=== PATIENT | female | born 1955 | race Caucasian/White ===

== ENCOUNTER 2016-10-27 16:44 | Inpatient (IN) | payer MEDICARE, OTHER ==
--- NOTE | ~2016-10-27 | CN ---
Consultation Report [facility] [address] [place]. [address] NAME: BALDOMERO QUIJANO : 51 STATUS : ADM IN PAT#: [id number] AGE: 61 ADM/REG DATE : 10/27/16 MR#: [id number] REPORT SERV DATE: 11/01/16 DICTATED BY: NOLVIA HARDIN DATE: 11/01/16 REPORT STATUS : Draft TRANSCRIBED BY: TAMAR DATE: 11/01/16 INFECTIOUS DISEASE CONSULT DATE OF CONSULTATION: REFERRING PHYSICIAN: Fish Carrizales M.D. REASON FOR REFERRAL: Evaluation and treatment of fever, positive blood culture, and the patient needs a device implanted. HISTORY OF PRESENT ILLNESS: The patient is a 61-year-old female. She has history diabetes mellitus, obstructive sleep apnea, atrial fibrillation, and chronic renal insufficiency. She has been on Coumadin for some time. She interestingly also was diagnosed with coarctation of the aorta at age 6 and underwent an innovative procedure at [facility] for repair of that at age 6 including aortic outflow tract surgery and aortic valve replacement. She has had no further surgery or problems with that since then. She had been doing relatively well at home until about ten days ago when she began feeling weak, developed easy fatigability, became unsteady on her feet, that progressed until the day of admission, October 27 when she was found unresponsive by her daughter or by a grandson at home. She was brought in, initially looked somewhat cyanotic, but had begun to wake up and looked better by the time she arrived. She has been evaluated by Cardiology and ultimately EP and felt to have an arrhythmia that requires a pacemaker. At that time she came in, she was afebrile. White blood cell count was normal. She gave a history of a recent diagnosis of urinary tract infection two days before and two days of Cipro for that. She said she had some mild burning with urination, but no other symptoms. She was continued on antibiotics in the form of Rocephin at admission. Her admission temperature was normal, white blood cell count was normal, and urinalysis was normal. She, later in the day on the , had a temperature to 100.4 and in the edi architect hours, a temperature to 102. She said she felt feverish, had mild chills, but by the morning, that all resolved. Her all recorded temperatures since then for two and a half days have been normal. She had no new symptoms with that other than she says she has a mild upper respiratory infection symptoms with some sinus congestion, a dry cough, and her grandson had similar symptoms recently. She says she is feeling better and better each day. The Rocephin that had been started at admission had been discontinued on the and she has been on no antibiotics since then. Cultures taken at the time of the fever spike returned positive for gram-positive cocci one of two, initially, but that has been identified as Micrococcus and the other blood culture has been finalized as negative. She is generally feeling well now without any focal symptoms. No unusual environmental exposures recently. PAST MEDICAL HISTORY: Otherwise unremarkable. MEDICATIONS: As mentioned above. ALLERGIES: SHE HAS AN ALLERGY TO SULFA, WHICH CAUSES A RASH. SHE LIVES WITH HER DAUGHTER. Consultation Report [facility] [id number] [place]. [address] NAME: BALDOMERO QUIJANO : 51 STATUS : ADM IN [facility]#: [id number] AGE: 61 ADM/REG DATE : 10/27/16 MR#: [id number] REPORT SERV DATE: 11/01/16 DICTATED BY: NOLVIA HARDIN DATE: 11/01/16 REPORT STATUS : Draft TRANSCRIBED BY: TAMAR DATE: 11/01/16 SHE IS , IS A NONSMOKER, [place], HAS NO HISTORY OF ALCOHOL OR SUBSTANCE ABUSE. FAMILY HISTORY: Noncontributory. PHYSICAL EXAMINATION: GENERAL: Nontoxic adult female, in no acute distress. She is alert and oriented x3. VITAL SIGNS: Her temperature is 98.1, pulse 48, respirations 18, blood pressure 154/67. Her weight is 99 kg. HEENT: Her sclerae are clear. No oral or pharyngeal lesions. NECK: Supple without meningeal signs or lymphadenopathy. LUNGS: Clear. HEART: Irregular. ABDOMEN: Soft, nontender. Positive bowel sounds. EXTREMITIES: Without clubbing, cyanosis, or edema. No evidence of peripheral emboli. No rashes or sores. She has missing toes on her right foot from diabetic foot infection in the past that was years ago with nothing that looks infected now. LABORATORY DATA: White count at admission was 7.6, went up to 9.9, was down to 4.1 on the , 2.9 yesterday, 2.8 today with hematocrit of 36.3, and platelets 186, 36 segs, 1 band on today's differential. Her BUN and creatinine 22 and 0.94. Creatinine was 1.38 when she came in. IMPRESSION: I do not feel that she has an active bacterial infection now. There is no evidence of urinary tract infection at admission. No symptoms of that now. The blood culture, I feel is just a contaminant. There is no reason to suspect Micrococcus to be a pathogen in her and finally, she has had no fever despite being off all antibiotics for two and a half days. RECOMMENDATIONS: 1. No antibiotics recommended. 2. I feel okay to proceed with a pacemaker tomorrow unless she has more fever. Tonight, we will write to re-culture if she does. We will also check a CBC and procalcitonin tomorrow morning. Finally, I will follow the patient with you. I appreciate very much your consulting on this patient. KIRSTY/TAMAR Nolvia Hardin M.D. / [id number] Consultation Report [address] [place]. [address] NAME: BALDOMERO QUIJANO : 51 STATUS : ADM IN [facility]#: [id number] AGE: 61 ADM/REG DATE : 10/27/16 MR#: [id number] REPORT SERV DATE: 11/01/16 DICTATED BY: NOLVIA HARDIN DATE: 11/01/16 REPORT STATUS : Draft TRANSCRIBED BY: TAMAR DATE: 11/01/16 CC: Glenroy Marcos MD [facility] Sadie Carrizales M.D.
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
--- NOTE | ~2016-10-27 | CN ---
Consultation Report [facility] [address] [place]. [address] NAME: BALDOMERO QUIJANO : 51 STATUS : ADM IN PAT#: [id number] AGE: 61 ADM/REG DATE : 10/27/16 MR#: [id number] REPORT SERV DATE: 10/30/16 DICTATED BY: PATRICK ABBOTT DATE: 10/30/16 REPORT STATUS : Draft TRANSCRIBED BY: MODL DATE: 10/30/16 CARDIOLOGY CONSULTATION DATE OF CONSULTATION: 10/30/2016 REASON FOR CONSULTATION: Atrial fibrillation. HISTORY OF PRESENT ILLNESS: Ms Quijano is a very pleasant 61-year-old female, whom we have been asked to see by the Hospitalist Service for evaluation and management of atrial fibrillation. Her cardiac history is notable for congenital aortic stenosis that was operated on as a child at [facility] with repair and aortic valve replacement. This was performed at [place]. The patient states this is one of the first surgeries of its kind. She is unaware of the specifics of her valve, but denies having a metallic valve and denies any subsequent repeat operation on her heart other than ablation for atrial fibrillation. She does have long-standing atrial fibrillation that appears paroxysmal. She was treated with ablation in the past by Dr. Golden and more recently was cardioverted at this hospital in 07/2016. She was scheduled to follow up with my partner, Dr. Fish Carrizales, but was unable to keep the appointment and has not been seen by our group as an outpatient despite multiple hospital admissions. She does take chronic anticoagulation with warfarin, but per her medical record, has not been able to tolerate long-term use of beta blockers due to resting bradycardia. She has not been on an antiarrhythmic as far as I can tell and thus far she is aware. She is admitted to the hospital after having an episode of nonresponsiveness. She was at home with her 5-year-old grandson who apparently called 911 when he noticed she was not responding to questions. The patient was minimally responsive and apparently with cyanotic lips when the EMS arrived, but her level of consciousness gradually improved en route to the hospital. She apparently has had five days of increased lethargy with some description of involuntary movements of her upper extremities and unsteadiness on her feet. Her mental status has largely resolved and her workup has been unrevealing of the clear etiology. Her EKG upon arrival on 10/27/2016 was notable for sinus rhythm. She subsequently reverted to atrial fibrillation with tachycardic response and was started on AV tyrone blocking agents including diltiazem and now Coreg. She has been aware of palpitations during this admission and denies any clear recollection of such symptoms at home. She is currently resting comfortably in her chair with no complaints. PAST MEDICAL HISTORY: 1. Congenital heart disease. a. Coarctation of the aorta, status post repair at age 6 at [facility] with an aortic valve replacement at that time. Details of valve not known, but no subsequent operation that as far as I can tell. 2. Atrial fibrillation, paroxysmal, status post prior ablation and prior [facility]ON[facility] Consultation Report [address] [place]. [address] NAME: BALDOMERO QUIJANO : 51 STATUS : ADM IN [facility]#: [id number] AGE: 61 ADM/REG DATE : 10/27/16 MR#: [id number] REPORT SERV DATE: 10/30/16 DICTATED BY: PATRICK ABBOTT DATE: 10/30/16 REPORT STATUS : Draft TRANSCRIBED BY: TAMAR DATE: 10/30/16 cardioversion, currently not being managed with antiarrhythmic or AV tyrone blocking agents at home, but on long-term anticoagulation with warfarin. 3. Diabetes. 4. Hypertension. 5. Heart failure with preserved ejection fraction, diastolic with prior echo showing LVH and diastolic dysfunction, on low-dose Lasix. 6. History of CVA in 2014. 7. Chronic kidney disease. Currently, creatinine 0.9. 8. History of anxiety/depression. SURGICAL HISTORY: Total knee replacement, hysterectomy, aortic valve surgery as detailed above. FAMILY HISTORY: The patient's mother had a history of coronary heart disease and atrial fibrillation. The patient's father of heart failure. SOCIAL HISTORY: There is no current or prior history of tobacco, alcohol, or illicit drug use. The patient lives with her daughters and 5-year-old grandson. ALLERGIES: DOCUMENTED TO SULFA, MORPHINE, CODEINE, AND TRAMADOL. HOME MEDICATIONS: Reviewed and as per medical record. REVIEW OF SYSTEMS: As per HPI. Otherwise, negative. PHYSICAL EXAMINATION: VITAL SIGNS: Heart rate is currently in the 90s, blood pressure 110/70, respiratory rate 16. GENERAL: A well-nourished female, in no apparent distress. HEENT: Sclerae anicteric. Mucous membranes are moist. NECK: Supple. CARDIOVASCULAR: Regular S1 and S2 with a soft systolic ejection murmur. Clear lung martinez bilaterally. No wheezes, no rales. ABDOMEN: Soft, nondistended, nontender. EXTREMITIES: Warm. No edema. LABORATORY DATA: Reviewed. Most recent values notable for sodium 138, potassium 3.4, chloride 103, bicarb 24, BUN 14, creatinine 0.87, GFR greater than 60, glucose 157, calcium 8.7, magnesium 2.0, phosphorus 2.6, albumin 2.9. WBC 4.1, hemoglobin 11.7, hematocrit 35.0 platelets 174. INR 1.3. BNP on admission was 301. Hemoglobin A1c was 8.7. Lactate 1.8. STUDIES: EKG on admission sinus rhythm, rate 77, QTc 427, baseline artifact limiting interpretation of ST the segments. EKG on 10/30/2016, time 0349 hours, atrial fibrillation, heart rate approximately 150. Consultation Report [address] [place]. [address] NAME: BALDOMERO QUIJANO : 51 STATUS : ADM IN [facility]#: [id number] AGE: 61 ADM/REG DATE : 10/27/16 MR#: [id number] REPORT SERV DATE: 10/30/16 DICTATED BY: PATRICK ABBOTT DATE: 10/30/16 REPORT STATUS : Draft TRANSCRIBED BY: TAMAR DATE: 10/30/16 Telemetry demonstrates atrial fibrillation, heart rate ranging between 80 and 110. Brain MRI and CT reviewed per medical record. IMPRESSION/RECOMMENDATIONS: 1. Atrial fibrillation with tachycardia. 2. History nonresponsiveness that has resolved. 3. History of aortic valve replacement, per suspect bioprosthetic. 4. History of coarctation repair. 5. Heart failure, preserved ejection fraction, diastolic, chronic. 6. Abnormal blood culture notable for micrococcus, likely contaminant. 7. Diabetes. 8. Hypertension. The patient is currently less symptomatic with better rate control, having transitioned from IV diltiazem to oral Coreg. She has a history of tachycardic response, requiring multiple cardioversions, but apparently with minimal symptoms at home. As she has been poorly tolerant to AV tyrone blocking agents in the past, would consider a trial of antiarrhythmic drugs, specifically sotalol. Her renal function is within normal limits. We will start 80 mg b.i.d. and assess response. We will tentatively arrange for transesophageal echocardiogram cardioversion in the morning if the patient remains in atrial fibrillation and use low-dose metoprolol over the next 12 hours for supplemental heart rate response as needed. Transthoracic echocardiogram has been ordered. We will follow up on these results. Positive blood cultures noted and although the patient has an obvious risk factor for endocarditis, this is not suggested clinically with no fever, no leukocytosis and organism that is more likely to be a contaminant. Thank you for consultation. Additional recommendations forthcoming as clinical course evolves. MOSHE/TAMAR Patrick Abbott MD / [id number] CC: MD MARIA E Ardon SARA E
--- NOTE | ~2016-10-27 | DS ---
Discharge Summary [facility] [address] [place]. [address] NAME: BALDOMERO QUIJANO : 51 STATUS : DIS IN PAT#: [id number] AGE: 61 ADM/REG DATE : 10/27/16 MR#: [id number] REPORT SERV DATE: 11/04/16 DICTATED BY: NASEEM BENEDICT DATE: 11/03/16 REPORT STATUS : Draft TRANSCRIBED BY: MODL DATE: 11/03/16 ADMISSION DATE: 10/27/2016 DISCHARGE DATE: 11/03/2016 HISTORY OF PRESENT ILLNESS: Ms. Quijano is a 61-year-old female with a history of atrial fibrillation, on anticoagulation; CKD stage 3; hypertension; diabetes type 2; morbid obesity, who was brought to the emergency room via EMS, as the patient was found to be unresponsive at home. For further details, please refer to H and P dictated by Dr. Allen on 10/28/2016. HOSPITAL COURSE: Upon presentation to the emergency room, the patient was admitted on the hospitalist care for further management. Initial thought was that the patient's unresponsiveness was likely due to obstructive sleep apnea. The patient was placed on CPAP at night and managed accordingly. Given her history of atrial fibrillation, Cardiology was consulted to assist in management. Per their evaluation, the patient was initially started on a Cardizem drip eventually and then transitioned to oral medications. However, the patient's symptoms were uncontrolled, and the patient was subsequently started on sotalol as an antiarrhythmic. During the hospital course, the patient was subsequently diagnosed with tachycardic bradycardic syndrome precluding the use of optimal antiarrhythmic agents. EP was subsequently consulted. Status post evaluation by EP, it was deemed that the patient was a candidate for pacemaker implantation. However, there was concern of the patient having an infection. Infectious Disease was consulted, who recommended that the patient was okay for procedure and no antibiotic needed to be initiated. The patient was taken to the cardiac lab yesterday, 10/06/2016 for pacemaker implantation. The patient tolerated the procedure well. Status post procedure, the patient has remained hemodynamically stable. For further additional details, please refer to consultation notes dictated by Dr. Abbott of Cardiology, Dr. Carrizales of Cardiology EP, and Dr. Fernando of Infectious Disease. Status post procedure, the patient has remained hemodynamically stable. The patient has been cleared by Cardiology for discharge. Given her hemodynamic stability and completion of workup and management, the patient will be discharged home per Cardiology recs. Plans have been discussed with the patient, who voices understanding and is agreeable with that plan. DISCHARGE DIAGNOSES: 1. Atrial fibrillation. 2. Diabetes type 2. 3. Heart failure with preserved EF. 4. Status post aortic valve repair. 5. Obstructive sleep apnea, on CPAP. 6. Tremors. 7. Hypertension. 8. Obesity. DISCHARGE EXAM: GENERAL: The patient is lying in bed, in no acute distress, appears stated age. HEENT: Normocephalic, atraumatic. Extraocular motors intact. Moist oral mucosa. NECK: Full. Trachea midline and symmetric. No thyromegaly noted. Discharge Summary [address] [place]. [address] NAME: BLADOMERO QUIJANO : 51 STATUS : DIS IN PAT#: [id number] AGE: 61 ADM/REG DATE : 10/27/16 MR#: [id number] REPORT SERV DATE: 11/04/16 DICTATED BY: NASEEM BENEDICT DATE: 11/03/16 REPORT STATUS : Draft TRANSCRIBED BY: TAMAR DATE: 11/03/16 CHEST: Nontender to palpation. CARDIOVASCULAR: Regular rate and rhythm. S1, S2. No murmurs, rubs, or gallops. LUNGS: Clear to auscultation bilaterally. ABDOMEN: Obese. Positive bowel sounds. Nontender, nondistended. EXTREMITIES: No cyanosis, no clubbing, no edema. NEURO: Alert and oriented x3. No focal deficits appreciated. DISCHARGE MEDICATIONS: The patient's home medications were continued with the addition of propafenone. Medications include propafenone 325 mg p.o. q.8 hours, baclofen 20 mg p.o. at bedtime, Lasix 20 mg p.o. every morning, furosemide 10 mg p.o. daily p.r.n. for weight gain greater than 20 pounds, insulin 50 units subcu before meals, insulin NovoLog, insulin aspart, insulin Levemir 60 units subcu at bedtime, [place] [address] units two caps p.o. with meals, Zenpep one cap p.o. with snacks, warfarin 5 mg p.o. at bedtime, glimepiride 4 mg p.o. daily, Percocet 10/325 mg p.o. q.6 hours p.r.n., gabapentin 600 mg p.o. three times a day, Atarax 25 mg p.o. at bedtime, ProAir two puff inhalations three times a day p.r.n., Klonopin 0.5 mg p.o. at bedtime, fluconazole nasal spray two sprays nasal daily p.r.n., rosuvastatin 40 mg p.o. at bedtime. PROCEDURE: Pacemaker implantation by EP. IMAGING: MRI/MRA head without contrast, impression, unremarkable intracranial MRA. MRA/MRI brain without contrast, impression, advanced diffuse cerebral involutional changes. Small, 2-mm old lacunar infarct, left basal ganglia, superior margin of the caudate nucleus. No acute CVA or other acute change cranial pathology identified. Small effusions bilateral, inferior mastoid sounds, although no air fluid levels. On cranial CT, there are no associated areas of bony trabecular destruction new from 2014 MRI, otherwise uncertain age. CONSULTANTS: With Dr. Fernando of Infectious Disease, Dr. Abbott of Cardiology, Dr. Carrizales of EP. DISPOSITION: The patient will be discharged home. ACTIVITY: As tolerated. DIET: Diabetic diet. Greater than 30 minutes was spent coordinating care, dictation of note, medication reconciliation, coordinating discharge, discussion of the patient with nursing staff. RONALD/TAMAR Discharge Summary [address] [address] NAME: BALDOMERO QUIJANO : 51 STATUS : DIS IN PAT#: [id number] AGE: 61 ADM/REG DATE : 10/27/16 MR#: [id number] REPORT SERV DATE: 11/04/16 DICTATED BY: NASEEM BENEDICT DATE: 11/03/16 REPORT STATUS : Draft TRANSCRIBED BY: TAMAR DATE: 11/03/16 Naseem Benedict MD / [id number] CC: MD LEISA Gibson
--- NOTE | ~2016-10-27 | ECH ---
Echocardiogram [facility] [address] [place]. [address] NAME: BALDOMERO QUIJANO : 51 STATUS : ADM IN PAT#: [id number] AGE: 61 ADM/REG DATE : 10/27/16 MR#: [id number] REPORT SERV DATE: 11/02/16 DICTATED BY: DULCE HOWELL JR. DATE: 11/02/16 REPORT STATUS : Draft TRANSCRIBED BY: TAMAR DATE: 11/02/16 REFERRING PHYSICIANS: 1. Leyda Allen M.D. 2. Dr. Golden. 3. Dr. Connolly. TECH: Eugenia Regan is the CS. DATE OF ACQUISITION: 10/04/2016. INDICATIONS: Atrial fibrillation with RVR. 2-D INTERPRETATION: M-mode and 2-dimensional echocardiography were performed. The left atrium was normal in size measuring 3.4 cm compared to an aortic root diameter of 2.9 cm. The left ventricle was normal in size measuring 5.3 cm in end-diastole and 3.7 cm in end- diastole. Overall, there appeared to be normal left ventricular systolic function without regional wall motion abnormality with ejection fraction of approximately 50% to 55%. The aortic valve was trileaflet and sclerotic with calcification of the anulus. The aortic root measured 2.7 cm in diameter. An area of prior coarct was visualized with fibrotic tissue noted at the descending portion, but no obvious gradient was identified. The mitral valve was structurally normal. The remaining cardiac valves appeared to be structurally normal. No pericardial or pleural effusion could be seen. No intracardiac mass could be identified. DOPPLER/COLOR FLOW: Conventional and Doppler color flow imaging were performed. Mitral inflow patterns were normal for patient's age. There was no significant mitral insufficiency. There was trace tricuspid insufficiency with peak right ventricular systolic pressure of 35 mmHg. Peak gradient across the aortic valve measured 10 mmHg. There was trace aortic insufficiency. Neither significant stenosis nor insufficiency. The remaining cardiac valves could be visualized. CONCLUSION: NORMAL LEFT VENTRICULAR SYSTOLIC FUNCTION WITH DIASTOLIC FUNCTION APPROPRIATE FOR AGE, TRICUSPID INSUFFICIENCY WITH MILDLY ELEVATED PULMONARY PRESSURES, TRACE AORTIC INSUFFICIENCY. AN AREA OF CORD NOTED WITH NO SIGNIFICANT ABNORMALITY IDENTIFIED. /TAMAR Dulce Howell Jr., M.D. / [id number] CC: MD MARIA E Gibson SARA E
--- NOTE | ~2016-10-27 | PUL ---
[facility] [address] [facility] [place]. [address] NAME: BALDOMERO QUIJANO : 51 STATUS : DIS IN PAT#: [id number] AGE: 61 ADM/REG DATE : 10/27/16 MR#: [id number] REPORT SERV DATE: 11/07/16 DICTATED BY: ZIA [place] DATE: 11/06/16 REPORT STATUS : Draft TRANSCRIBED BY: MODL DATE: 11/06/16 PULMONARY FUNCTION TEST TOTAL RECORDING TIME: 6 hours 30 minutes. Mean pulse 91, mean oxygen saturation 94%. Time with an oxygen saturation, less than 88%, 1 minute 40 seconds, 0.4% of the night. INTERPRETATION: In this patient, who conducted a room air overnight sleep study on pulse oximetry, no significant desaturations greater than 5 minutes were noted, and therefore, the patient does not need nocturnal oxygen therapy. HFQ/TAMAR Zia Mnotana MD / [id number] CC: MD LEISA Gibson
--- NOTE | ~2016-10-27 | HP ---
History And Physical [place] [id number] [facility] [place]. [address] NAME: BALDOMERO QUIJANO : 51 STATUS : ADM IN LOCATED WITHIN [facility]#: [id number] AGE: 61 ADM/REG DATE : 10/27/16 MR#: [id number] REPORT SERV DATE: 10/28/16 DICTATED BY: LEYDA MICHAEL DATE: 10/27/16 REPORT STATUS : Draft TRANSCRIBED BY: TAMAR DATE: 10/27/16 DATE OF ADMISSION: 10/27/2016 CHIEF COMPLAINT: The patient was found unresponsive at home. HISTORY OF PRESENT ILLNESS: This is a 61-year-old female with medical history of obstructive sleep apnea, currently has no CPAP available at home, atrial fibrillation on chronic anticoagulation, diabetes mellitus type 2, chronic kidney disease stage III, who was brought to the hospital by the EMS after she was found unresponsive by her daughter. The patient was unable to remember the activities preceding the presentation. Hence, the detailed history was provided by her daughter and her grandson who wear at the bedside. By family, it was noted that the patient has been having generalized weakness, lethargy, and fatigue over the last one week. Also noted is the patient has been unsteady on her feet, has been having this generalized jerky and tremor-like movements in the last one week. About five days ago, she went to her PCP where she complained about the above symptoms. At that point, she was found to have UTI and was prescribed ciprofloxacin. The patient reported that she continued to take the ciprofloxacin without any complications; however, the generalized weakness, fatigue, and tremors continued to persist without any improvement. As the patient has also been noted to be having excessive daytime sleepiness, she has difficulty falling and staying asleep at night. Hence, family members noticed that she was prescribed hydroxyzine for sleep. Despite taking this medication, the patient was noted to continued to have difficulty falling asleep, but continues to have excessive daytime sleepiness. Also of note, the patient's gabapentin was recently increased to 600 mg t.i.d. It was noted that on the morning of presentation, the patient took 600 mg of gabapentin and subsequently fell asleep. The patient's grandson walked into the room and found the patient deeply asleep, unresponsive. The patient's grandson called 911. On arrival of the EMS to the patient's house, the patient was found unresponsive with a pill of gabapentin still in the mouth. It was noted that the patient was cyanotic around the lips. When the EMS arrived at the house, he said it took about five to six minutes before the patient became awake. When the patient woke up on route to the hospital, she was noted to be confused; however, on arriving to the emergency, the patient was fully alert, oriented to self and person, no longer having episode of confusion. The patient was placed on O2 by the EMS with significant improvement in saturation and her episode of confusion gradually improved. On arrival in the ER, when I went to the bedside to take this interview, I noticed that the patient was sleeping with nasal cannula oxygen saturating at 95%; however, the patient was snoring very loud. While talking to the family member, the patient subsequently stopped snoring and became unresponsive. I did a sternal rub on the patient and the patient became awake. She appeared confused, not knowing where she was. She had a transient episode of confusion after waking up. Family member reported that was a similar episode that happened at home prior to presentation. After sternal rub, the patient was fully awake, was conversational, became oriented x3 and alert. No weakness or focal deficits. Slow speech weakness of the extremities noted. I will also obtain an ABG to rule out hypercapnic respiratory failure in this patient. History And Physical [address] [place]. [address] NAME: BALDOMERO QUIJANO : 51 STATUS : ADM IN LOCATED WITHIN [facility]#: [id number] AGE: 61 ADM/REG DATE : 10/27/16 MR#: [id number] REPORT SERV DATE: 10/28/16 DICTATED BY: LEYDA MICHAEL DATE: 10/27/16 REPORT STATUS : Draft TRANSCRIBED BY: MODL DATE: 10/27/16 PAST MEDICAL HISTORY: 1. Chronic atrial fibrillation on anticoagulation with warfarin. 2. History of cerebrovascular accident in 2014. 3. Chronic kidney disease stage III. 4. Coarctation of aorta status post aortic valve replacement and root of the aorta repair. 5. Hypertension. 6. Diabetes mellitus on insulin therapy at home. 7. Chronic back pain secondary to degenerative joint disease. 8. Osteoarthritis of multiple sites. 9. History of chronic neck pain secondary to cervical stenosis. 10.Morbid obesity. 11.History of depression. 12.History of anxiety disorder. PAST SURGICAL HISTORY: 1. Bilateral total knee replacement. 2. Hysterectomy. 3. Right second toe amputation. 4. Aortic valve replacement surgery. FAMILY HISTORY: Reported history of atrial fibrillation in the mother as well as history of coronary artery disease. The patient's father of congestive heart failure. There is also positive history of hypertension and diabetes in the family. SOCIAL HISTORY: She denies drinking alcohol, smoking cigarettes, or use of illicit drugs. She presently lives with her daughter and 6-year-old grandson. Chronic . ALLERGIES: ALLERGIC TO SULFA, MORPHINE, CODEINE, AND TRAMADOL. HOME MEDICATIONS: 1. Glimepiride 4 mg p.o. daily. 2. Insulin aspart 15 units before meals. 3. Insulin Levemir 60 units at bedtime. 4. Oxycodone 10/325 one tablet p.o. every six hours. 5. Gabapentin 600 mg tablet p.o. t.i.d. 6. Baclofen 20 mg p.o. at bedtime. 7. Hydroxyzine 25 mg p.o. at bedtime. 8. Albuterol MDI two puffs b.i.d. 9. Clonazepam 0.5 mg p.o. at bedtime. 10.Warfarin 5 mg p.o. at bedtime. 11.Fluticasone nasal spray 50 mcg inhaler at bedtime. 12.Clomipramine DM one tablet daily. 13.Melatonin 3 mg p.o. at bedtime. 14.Crestor 40 mg p.o. daily. 15.Lasix 20 mg p.o. daily. 16.Lasix 20 mg p.o. p.r.n. for weight gain. History And Physical [address] [place]. [address] NAME: BALDOMERO QUIJANO : 51 STATUS : ADM IN LOCATED WITHIN [facility]#: [id number] AGE: 61 ADM/REG DATE : 10/27/16 MR#: [id number] REPORT SERV DATE: 10/28/16 DICTATED BY: LEYDA MICHAEL DATE: 10/27/16 REPORT STATUS : Draft TRANSCRIBED BY: TAMAR DATE: 10/27/16 17.Norvasc 5 mg p.o. daily. 18.Zenpep DR 40,000 units two capsules p.o. with meals. 19.Zenpep DR 40,000 units one capsule with every snack. 20.Ciprofloxacin 500 mg p.o. b.i.d. for five days. REVIEW OF SYSTEMS: 12-point review of systems performed essentially negative. Positive findings as per HPI. PHYSICAL EXAMINATION: VITAL SIGNS: Blood pressure 131/63, pulse is 74 beats per minute, temperature 98.4, respiratory rate 14, saturating at 98% on 3 L of oxygen. GENERAL: Not in any acute distress. HEENT: Pupils are equal, reactive. Extraocular motion intact. Not pale. Nonicteric. Not cyanotic. Oral mucosa moist. NECK: Supple. CHEST: Equally symmetrical, nontender. LUNGS: Clear to auscultation bilaterally. CARDIOVASCULAR: Regular rate and rhythm. S1, S2. No murmurs appreciated. ABDOMEN: Obese. Bowel sounds normoactive. Nontender. No palpably enlarged organomegaly. EXTREMITIES: Lower extremity; trace bilateral pitting edema +1. LABORATORY DATA: Chemistry; sodium 138, potassium 3.7, chloride 100, bicarb 28, creatinine 1.38, BUN 21, glucose 222. Hematology; WBC 7.3, hemoglobin 11.3, hematocrit 34.6, platelets 197. IMAGING STUDIES: CT brain, impression: 1. No acute infarct or hemorrhage. 2. Stable mild atrophy with extensive chronic white matter ischemic changes. 3. Extensive physiologic calcification in the basal ganglia and cerebral hemisphere that is unchanged. Chest x-ray, impression: No acute cardiopulmonary process psychologically evidenced. SUMMARY: This is a 61-year-old female with medical history significant for sleep apnea with defective CPAP machine, who presented to the hospital after she was found unresponsive by family members. On arrival at the EMS, after multiple trials, the patient was aroused. The patient was noted to have episode of cyanosis while asleep on arrival at the EMS. The patient was aroused by the EMS, had some transit episode of confusion, but was on arrival to the hospital, confusion has totally resolved, was became awake and alert. ASSESSMENT AND PLAN: 1. Unresponsiveness secondary to obstructive sleep apnea. I would consider the patient having an apneic episode. While in the ER, the patient was on nasal cannula oxygen, heart rate dropped into the 50s. I did a sternal rub on this patient to wake up. When she woke up, she was confused similar to her presentation at home. At this point, the patient definitely needs a CPAP machine prior to the patient will be admitted. The patient reported that she has a CPAP machine, but the face mask is defective and has History And Physical [place] [id number] [place]. [address] NAME: BALDOMERO QUIJANO : 51 STATUS : ADM IN PAT#: [id number] AGE: 61 ADM/REG DATE : 10/27/16 MR#: [id number] REPORT SERV DATE: 10/28/16 DICTATED BY: LEYDA MICHAEL DATE: 10/27/16 REPORT STATUS : Draft TRANSCRIBED BY: TAMAR DATE: 10/27/16 been noncompliant with these prior to presentation. We will place the patient on CPAP machine tonight, observe overnight, and possibly get an overnight pulse oximetry in order to procure another CPAP machine for the patient. 2. Tremors. The patient has been having generalized tremors with occasional jerky movements without any seizure-like activities at home. The etiology of this unclear at this time. I will obtain an MRI and MRA of the brain, neck, and cervical spine to further evaluate for the etiology of this tremors. I will also obtain a vitamin B12, folic acid, RPR, and TSH. 3. Urinary tract infection. The patient was diagnosed with UTI prior to admission, was on the third day of ciprofloxacin. At this point, I would discontinue ciprofloxacin and start the patient on IV ceftriaxone and obtain urine culture, blood cultures, and follow up with the results. 4. Chronic atrial fibrillation on chronic anticoagulation with warfarin. INR of 1.6 on admission. We will restart the patient's warfarin during this admission. The patient was noted not to be on any beta-rudy by family members because she usually have a bradycardic episode while on beta-rudy. Hence, beta-rudy was discontinued by her primary care physician. We will continue to avoid beta-rudy in this patient during the course of this admission. 5. Diabetes mellitus. We will recommend the patient on insulin therapy. 6. Hypertension. We will recommend the patient's home antihypertensive. 7. Diabetes mellitus neuropathy. At this point, given excessive daytime sleepiness. We will hold of gabapentin in this patient. 8. Code status. Full code. The patient to be admitted to the cardiac tele monitory unit under the care of the hospitalist, Dr. Leyda Michael. IOO/MODL Leyda Michael MD / [id number] CC: MD Mary Ann Ardon
[2016-10-27 15:36] LABS: BASOPHILS 0.3 %; BASOPHILS ABSOLUTE 0.02 10/3/uL (0.0-0.16); EOSINOPHILS ABSOLUTE 0.15 10/3/uL (0.0-0.53); HEMOGLOBIN 11.3 g/dL (12.0-16.0); IMMATURE GRANULOCYTES 0.3 %; IMMATURE GRANULOCYTES ABSOLUTE 0.02 10/3/uL (0.0-0.11); LYMPHOCYTES 13.3 %; LYMPHOCYTES ABSOLUTE 1.01 10/3/uL (0.67-4.30); MEAN CORPUS HGB CONC 32.7 g/dL (32.0-36.0); MEAN CORPUSCULAR HEMOGLOB 29.1 pg (26.0-34.0); MEAN CORPUSCULAR VOLUME 89.2 fL (80-100); MEAN PLATELET VOLUME 10.2 fL (9.2-13.0); MONOCYTES 6.5 %; MONOCYTES ABSOLUTE 0.49 10/3/uL (0.21-1.20); NEUTROPHILS 77.6 %; NEUTROPHILS ABSOLUTE 5.89 10/3/uL (2.02-8.40); RBC DISTRIBUTION WIDTH 15.2 % (12.0-16.0); RED CELL COUNT 3.88 10/6/uL (4.0-5.6); WHITE BLOOD CELLS 7.6 10/3/uL (4.5-10.5)
[2016-10-27 15:38] LABS: HEMATOCRIT 34.6 % (36.0-48.0); MANUAL DIFF NO %; PLATELET COUNT 197 10/3/uL (150-400)
[2016-10-27 15:44] LABS: INTERNATIONAL NORMAL RATI 1.6 UNITS (-); PROTIME (NOT ORD) 19.2 SEC (12.0-14.5)
[2016-10-27 15:45] LABS: PARTIAL THROMBO TIME 33.5 SEC (22.5-37.2)
[2016-10-27 15:54] LABS: A/G RATIO 0.9 (0.7-1.9); ALBUMIN 3.5 G/DL (3.5-5.0); ALKALINE PHOSPHATASE 115 U/L (45-117); BUN (BLOOD UREA NITROGEN) 21 MG/DL (6-23); CALCIUM, SERUM 8.6 MG/DL (8.5-10.4); CHLORIDE, SERUM 100 MMOL/L (96-112); CO2 (CARBON DIOXIDE) 28 MMOL/L (24-34); CREATININE 1.38 MG/DL (0.55-1.02); GFR AFRICAN AMERICAN 47 ML/MIN (>=60); GFR NON AFRICAN AMERICAN 41 ML/MIN (>=60); GLOBULIN 3.7 G/DL (2.5-4.1); GLUCOSE, SERUM 226 MG/DL (60-99); POTASSIUM, SERUM 3.7 MMOL/L (3.5-5.3); SGOT(AST) 32 U/L (5-40); SGPT(ALT) 21 U/L (5-65); SODIUM, SERUM 138 MMOL/L (135-148); TOTAL BILIRUBIN 0.6 MG/DL (0-1.2); TOTAL PROTEIN 7.2 G/DL (6.0-8.5); TROPONIN I <0.02 NG/ML (<0.05)
[2016-10-27 16:35] LABS: ASCORBIC ACID (UR NOT ORDER) NEG (NEG); BILIRUBIN, URINE NEGATIVE (NEG); ER URINALYSIS TAT 0 Hrs 11 Mins; KETONE, URINE NEGATIVE (NEG); LEUKOCYTE ESTERASE(NOT OR SMALL (NEG); NITRITE (URINE) NEG (NEG); WBC (NOT ORDERED) (RFLEX) 4 (0-5)
[~2016-10-27 16:44] MED LIST: AMARYL4 PO; AMB10 PO; AMOXIL500 MG PO; ASAB PO; BACLOFEN20 MG PO; C5 PO; CELEXA10 MG/5 ML OR; CELEXA20 PO; CIP5 PO; CIPRODEX OT; COUMADIN6 MG PO; COUMADIN7.5 MG PO; CRESTOR40 MG PO; EYE INJECTION OPH; GLUCOPHAGE1000 MG PO; GLUCOPHXR7 PO; HUMULIN R1 ML SC; HYZAAR 50/12.51 TAB PO; I40 PO; KLONO5 PO; KLOR-CON M2020 MEQ PO; L20 PO; L40 PO; LANTUS SC; LEVEMIR SC; LIOR10 PO; LOP25 PO; LORCET PO; NATALVIT1 TAB PO; NEUR300 PO; NEUR400 PO; NORCO1 TAB PO; NORV5 PO; NOVOLOG SC; PERCOCET1 TA4 PO; PROAIR HFA INH; PROAIR HFA PO; PROTONIX PO; PROVENTSOL INH; PROZAC40 MG PO; REFRES1 OPH; REFRESH OPH; SWEEN TOP; TEARS AGAI1 OPH; WELCHOL 625 MG625 MG PO; WELCHOL3.75 GM PO; XANAX XR1 MG PO; XANAX1 MG PO; ZETIA PO; [UNRECOGNIZED DRUG - CODE] PO
[2016-10-27] MEDS ORDERED: AMARYL4 PO (17:43)
[2016-10-27] MEDS ORDERED: NOVOLOG SC (17:44)
[2016-10-27] MEDS ORDERED: PERCOCET 10/3251 TAB PO (17:44)
[2016-10-27] MEDS ORDERED: LEVEMIR SC (17:44)
[2016-10-27] MEDS ORDERED: BACLOFEN20 MG PO (17:45)
[2016-10-27] MEDS ORDERED: NEUR600 PO (17:45)
[2016-10-27] MEDS ORDERED: AT25 PO (17:46)
[2016-10-27] MEDS ORDERED: PROAIR HFA INH (17:47)
[2016-10-27] MEDS ORDERED: KLONO5 PO (17:47)
[2016-10-27] MEDS ORDERED: C5 PO ×2 (17:49→17:59)
[2016-10-27] MEDS ORDERED: FLONASE NAS (17:50)
[2016-10-27] MEDS ORDERED: CORICIDI1 PO (17:51)
[2016-10-27] MEDS ORDERED: ICY HOT PATCH TOP (17:52)
[2016-10-27] MEDS ORDERED: MELA3 PO (17:52)
[2016-10-27] MEDS ORDERED: CRESTOR40 MG PO (17:58)
[2016-10-27] MEDS ORDERED: NORV5 PO (17:58)
[2016-10-27] MEDS ORDERED: L20 PO ×2 (17:58)
[2016-10-27] MEDS ORDERED: CIP5 PO (17:59)
[2016-10-27] MEDS ORDERED: ZENPEP DR 40,01 EACH PO ×2 (17:59)
[2016-10-27 21:09] LABS: BE (BASE EXCESS) -1.7 MEQ/L (0 +/- 2.5); CARBOXYHEMOGLOBIN 0.2 % (0-3); DEVICE NC; HCO3 (ACTUAL BICARBONATE) 22.9 MEQ/L (23-27); HEMOBLOGIN CONTENT 12.7 G/DL (12-16); INSTRUMENT SERIAL # 8083; METHEMOGLOBIN 0.2 % (0-3); O2 CONTENT 17.3 VOL% (18-24); PCO2 (CO2 TENSION) 38 MMHG (35-45); PO2 (O2 TENSION) 88 MMHG (79-93); SAMPLE Arterial
[2016-10-27 22:03] LABS: FREE T4 1.02 NG/DL (0.76-1.46)
[2016-10-27 22:04] LABS: PHOSPHORUS, SERUM 2.5 MG/DL (2.5-4.5); ULTRASENSITIVE TSH 0.736 MCIU/ML (0.358-3.740)
[2016-10-27 22:08] LABS: B NATRIURETIC PEPTIDE (BNP) 301.3 PG/ML (< 100.0)
[2016-10-27 22:22] LABS: GLYCOHEMOGLOBIN (HbA1c) 8.7 % (4.7-6.1)
[2016-10-28 07:14] LABS: BASOPHILS 0.1 %; BASOPHILS ABSOLUTE 0.01 10/3/uL (0.0-0.16); EOSINOPHILS 0.1 %; EOSINOPHILS ABSOLUTE 0.01 10/3/uL (0.0-0.53); HEMATOCRIT 35.5 % (36.0-48.0); HEMOGLOBIN 11.6 g/dL (12.0-16.0); IMMATURE GRANULOCYTES 0.2 %; IMMATURE GRANULOCYTES ABSOLUTE 0.02 10/3/uL (0.0-0.11); LYMPHOCYTES 6.4 %; LYMPHOCYTES ABSOLUTE 0.64 10/3/uL (0.67-4.30); MEAN CORPUS HGB CONC 32.7 g/dL (32.0-36.0); MEAN CORPUSCULAR HEMOGLOB 29.1 pg (26.0-34.0); MEAN PLATELET VOLUME 10.4 fL (9.2-13.0); MONOCYTES 4.7 %; MONOCYTES ABSOLUTE 0.47 10/3/uL (0.21-1.20); NEUTROPHILS 88.5 %; NEUTROPHILS ABSOLUTE 8.78 10/3/uL (2.02-8.40); PLATELET COUNT 219 10/3/uL (150-400); RBC DISTRIBUTION WIDTH 15.4 % (12.0-16.0); RED CELL COUNT 3.99 10/6/uL (4.0-5.6); WHITE BLOOD CELLS 9.9 10/3/uL (4.5-10.5)
[2016-10-28 07:16] LABS: MANUAL DIFF NO %
[2016-10-28 07:21] LABS: INTERNATIONAL NORMAL RATI 1.6 UNITS (-); PROTIME (NOT ORD) 19.1 SEC (12.0-14.5)
[2016-10-28 07:29] LABS: ALBUMIN 3.1 G/DL (3.5-5.0); BUN (BLOOD UREA NITROGEN) 13 MG/DL (6-23); CALCIUM, SERUM 8.8 MG/DL (8.5-10.4); CHLORIDE, SERUM 108 MMOL/L (96-112); CO2 (CARBON DIOXIDE) 27 MMOL/L (24-34); GFR AFRICAN AMERICAN 69 ML/MIN (>=60); GFR NON AFRICAN AMERICAN 60 ML/MIN (>=60); GLUCOSE, SERUM 234 MG/DL (60-99); PHOSPHORUS, SERUM 2.2 MG/DL (2.5-4.5); POTASSIUM, SERUM 3.7 MMOL/L (3.5-5.3); SODIUM, SERUM 145 MMOL/L (135-148)
[2016-10-28 15:14] LABS: INFLUENZA A SCREEN NEGATIVE (NEGATIVE); INFLUENZA B SCREEN NEGATIVE (NEGATIVE)
[2016-10-29 06:19] LABS: BASOPHILS 0.2 %; BASOPHILS ABSOLUTE 0.01 10/3/uL (0.0-0.16); EOSINOPHILS 0.4 %; EOSINOPHILS ABSOLUTE 0.02 10/3/uL (0.0-0.53); HEMATOCRIT 32.2 % (36.0-48.0); HEMOGLOBIN 10.7 g/dL (12.0-16.0); IMMATURE GRANULOCYTES 0.2 %; IMMATURE GRANULOCYTES ABSOLUTE 0.01 10/3/uL (0.0-0.11); LYMPHOCYTES 8.3 %; LYMPHOCYTES ABSOLUTE 0.47 10/3/uL (0.67-4.30); MEAN CORPUS HGB CONC 33.2 g/dL (32.0-36.0); MEAN CORPUSCULAR HEMOGLOB 30.2 pg (26.0-34.0); MEAN PLATELET VOLUME 10.5 fL (9.2-13.0); MONOCYTES 15.5 %; MONOCYTES ABSOLUTE 0.88 10/3/uL (0.21-1.20); NEUTROPHILS 75.4 %; PLATELET COUNT 177 10/3/uL (150-400); RBC DISTRIBUTION WIDTH 15.4 % (12.0-16.0); RED CELL COUNT 3.54 10/6/uL (4.0-5.6)
[2016-10-29 06:21] LABS: MANUAL DIFF NO %; WHITE BLOOD CELLS 5.7 10/3/uL (4.5-10.5)
[2016-10-29 06:30] LABS: INTERNATIONAL NORMAL RATI 1.6 UNITS (-)
[2016-10-29 07:19] LABS: BUN (BLOOD UREA NITROGEN) 12 MG/DL (6-23); CALCIUM, SERUM 8.2 MG/DL (8.5-10.4); CHLORIDE, SERUM 107 MMOL/L (96-112); CO2 (CARBON DIOXIDE) 24 MMOL/L (24-34); GFR AFRICAN AMERICAN 69 ML/MIN (>=60); GFR NON AFRICAN AMERICAN 60 ML/MIN (>=60); GLUCOSE, SERUM 234 MG/DL (60-99); POTASSIUM, SERUM 3.8 MMOL/L (3.5-5.3); SODIUM, SERUM 140 MMOL/L (135-148)
[2016-10-30 06:09] LABS: HEMOGLOBIN 11.7 g/dL (12.0-16.0); MEAN CORPUS HGB CONC 33.4 g/dL (32.0-36.0); MEAN CORPUSCULAR VOLUME 89.7 fL (80-100); MEAN PLATELET VOLUME 10.5 fL (9.2-13.0); PLATELET COUNT 174 10/3/uL (150-400); RBC DISTRIBUTION WIDTH 15.7 % (12.0-16.0); WHITE BLOOD CELLS 4.1 10/3/uL (4.5-10.5)
[2016-10-30 06:27] LABS: MANUAL DIFF YES %
[2016-10-30 06:31] LABS: INTERNATIONAL NORMAL RATI 1.3 UNITS (-); PROTIME (NOT ORD) 16.2 SEC (12.0-14.5)
[2016-10-30 06:33] LABS: ALBUMIN 2.9 G/DL (3.5-5.0); BUN (BLOOD UREA NITROGEN) 14 MG/DL (6-23); CALCIUM, SERUM 8.7 MG/DL (8.5-10.4); CHLORIDE, SERUM 103 MMOL/L (96-112); CO2 (CARBON DIOXIDE) 24 MMOL/L (24-34); CREATININE 0.87 MG/DL (0.55-1.02); GFR AFRICAN AMERICAN 82 ML/MIN (>=60); GFR NON AFRICAN AMERICAN 71 ML/MIN (>=60); PHOSPHORUS, SERUM 2.6 MG/DL (2.5-4.5); POTASSIUM, SERUM 3.4 MMOL/L (3.5-5.3); SODIUM, SERUM 138 MMOL/L (135-148)
[2016-10-30 06:34] LABS: GLUCOSE, SERUM 157 MG/DL (60-99)
[2016-10-30 07:47] LABS: LYMPHOCYTES 13 %; LYMPHOCYTES ABSOLUTE (CALC) 0.53 10/3/uL (0.67-4.30); MONOCYTES 11 %; MONOCYTES ABSOLUTE (CALC) 0.45 10/3/uL (0.21-1.20); NEUTROPHILS ABSOLUTE (CALC) 3.12 10/3/uL (2.02-8.40); SEGMENTED NEUTROPHIL (0) 76 %; TOTAL NUCLEATED CELLS 100
[2016-10-30 07:48] LABS: PLATELET ESTIMATE ADQ (ADEQUATE); RBC MORPHOLOGY NORM (NORMAL)
[2016-10-31 06:31] LABS: HEMATOCRIT 34.3 % (36.0-48.0); HEMOGLOBIN 11.2 g/dL (12.0-16.0); MEAN CORPUS HGB CONC 32.7 g/dL (32.0-36.0); MEAN CORPUSCULAR HEMOGLOB 29.5 pg (26.0-34.0); MEAN CORPUSCULAR VOLUME 90.3 fL (80-100); MEAN PLATELET VOLUME 10.4 fL (9.2-13.0); PLATELET COUNT 166 10/3/uL (150-400); RBC DISTRIBUTION WIDTH 15.6 % (12.0-16.0); WHITE BLOOD CELLS 2.9 10/3/uL (4.5-10.5)
[2016-10-31 06:33] LABS: MANUAL DIFF YES %
[2016-10-31 06:42] LABS: INTERNATIONAL NORMAL RATI 1.2 UNITS (-); PROTIME (NOT ORD) 15.3 SEC (12.0-14.5)
[2016-10-31 06:48] LABS: BUN (BLOOD UREA NITROGEN) 24 MG/DL (6-23); CALCIUM, SERUM 8.1 MG/DL (8.5-10.4); CHLORIDE, SERUM 101 MMOL/L (96-112); CO2 (CARBON DIOXIDE) 28 MMOL/L (24-34); CREATININE 1.13 MG/DL (0.55-1.02); GFR AFRICAN AMERICAN 60 ML/MIN (>=60); GFR NON AFRICAN AMERICAN 52 ML/MIN (>=60); GLUCOSE, SERUM 273 MG/DL (60-99); PHOSPHORUS, SERUM 3.9 MG/DL (2.5-4.5); POTASSIUM, SERUM 3.9 MMOL/L (3.5-5.3); SODIUM, SERUM 136 MMOL/L (135-148)
[2016-10-31 07:06] LABS: BAND NEUTROPHILS 6 %; LYMPHOCYTES 39 %; LYMPHOCYTES ABSOLUTE (CALC) 1.13 10/3/uL (0.67-4.30); MONOCYTES 14 %; MONOCYTES ABSOLUTE (CALC) 0.41 10/3/uL (0.21-1.20); NEUTROPHILS ABSOLUTE (CALC) 1.36 10/3/uL (2.02-8.40); SEGMENTED NEUTROPHIL (0) 41 %; TOTAL NUCLEATED CELLS 100
[2016-10-31 07:07] LABS: PLATELET ESTIMATE ADQ (ADEQUATE); RBC MORPHOLOGY NORM (NORMAL)
[2016-11-01 06:08] LABS: INTERNATIONAL NORMAL RATI 1.2 UNITS (-); PROTIME (NOT ORD) 15.3 SEC (12.0-14.5)
[2016-11-01 06:13] LABS: HEMATOCRIT 36.3 % (36.0-48.0); MANUAL DIFF YES %; MEAN CORPUS HGB CONC 33.1 g/dL (32.0-36.0); MEAN CORPUSCULAR HEMOGLOB 29.8 pg (26.0-34.0); MEAN CORPUSCULAR VOLUME 90.1 fL (80-100); MEAN PLATELET VOLUME 10.5 fL (9.2-13.0); PLATELET COUNT 186 10/3/uL (150-400); RBC DISTRIBUTION WIDTH 15.3 % (12.0-16.0); RED CELL COUNT 4.03 10/6/uL (4.0-5.6); WHITE BLOOD CELLS 2.8 10/3/uL (4.5-10.5)
[2016-11-01 06:46] LABS: BAND NEUTROPHILS 1 %; BASOPHILS 2 %; BASOPHILS ABSOLUTE (CALC) 0.06 10/3/uL (0.0-0.16); EOSINOPHILS 1 %; EOSINOPHILS ABSOLUTE (CALC) 0.03 10/3/uL (0.0-0.53); LYMPHOCYTES 54 %; LYMPHOCYTES ABSOLUTE (CALC) 1.51 10/3/uL (0.67-4.30); MONOCYTES 6 %; MONOCYTES ABSOLUTE (CALC) 0.17 10/3/uL (0.21-1.20); NEUTROPHILS ABSOLUTE (CALC) 1.04 10/3/uL (2.02-8.40); PLATELET ESTIMATE ADQ (ADEQUATE); RBC MORPHOLOGY NORM (NORMAL); SEGMENTED NEUTROPHIL (0) 36 %; TOTAL NUCLEATED CELLS 100
[2016-11-01 08:14] LABS: A/G RATIO 0.7 (0.7-1.9); ALBUMIN 2.7 G/DL (3.5-5.0); BUN (BLOOD UREA NITROGEN) 22 MG/DL (6-23); CALCIUM, SERUM 8.3 MG/DL (8.5-10.4); CHLORIDE, SERUM 104 MMOL/L (96-112); CO2 (CARBON DIOXIDE) 26 MMOL/L (24-34); CREATININE 0.94 MG/DL (0.55-1.02); GFR AFRICAN AMERICAN 75 ML/MIN (>=60); GFR NON AFRICAN AMERICAN 65 ML/MIN (>=60); GLOBULIN 3.7 G/DL (2.5-4.1); POTASSIUM, SERUM 3.7 MMOL/L (3.5-5.3); SGOT(AST) 26 U/L (5-40); SGPT(ALT) 21 U/L (5-65); SODIUM, SERUM 139 MMOL/L (135-148); TOTAL BILIRUBIN 0.2 MG/DL (0-1.2); TOTAL PROTEIN 6.4 G/DL (6.0-8.5)
[2016-11-01 08:17] LABS: ALKALINE PHOSPHATASE 88 U/L (45-117); GLUCOSE, SERUM 183 MG/DL (60-99)
[2016-11-02 06:35] LABS: HEMATOCRIT 36.5 % (36.0-48.0); HEMOGLOBIN 12.1 g/dL (12.0-16.0); MEAN CORPUS HGB CONC 33.2 g/dL (32.0-36.0); MEAN CORPUSCULAR VOLUME 90.3 fL (80-100); MEAN PLATELET VOLUME 10.5 fL (9.2-13.0); PLATELET COUNT 159 10/3/uL (150-400); RBC DISTRIBUTION WIDTH 15.2 % (12.0-16.0); RED CELL COUNT 4.04 10/6/uL (4.0-5.6); WHITE BLOOD CELLS 3.2 10/3/uL (4.5-10.5)
[2016-11-02 06:40] LABS: MANUAL DIFF YES %
[2016-11-02 06:46] LABS: INTERNATIONAL NORMAL RATI 1.5 UNITS (-)
[2016-11-02 06:57] LABS: PROTIME (NOT ORD) 17.6 SEC (12.0-14.5)
[2016-11-02 06:59] LABS: A/G RATIO 0.9 (0.7-1.9); ALBUMIN 2.8 G/DL (3.5-5.0); BUN (BLOOD UREA NITROGEN) 24 MG/DL (6-23); CALCIUM, SERUM 8.1 MG/DL (8.5-10.4); CHLORIDE, SERUM 104 MMOL/L (96-112); CO2 (CARBON DIOXIDE) 26 MMOL/L (24-34); CREATININE 0.98 MG/DL (0.55-1.02); GFR AFRICAN AMERICAN 71 ML/MIN (>=60); GFR NON AFRICAN AMERICAN 61 ML/MIN (>=60); GLOBULIN 3.2 G/DL (2.5-4.1); GLUCOSE, SERUM 215 MG/DL (60-99); POTASSIUM, SERUM 4.2 MMOL/L (3.5-5.3); SGOT(AST) 23 U/L (5-40); SGPT(ALT) 20 U/L (5-65); SODIUM, SERUM 141 MMOL/L (135-148); TOTAL BILIRUBIN 0.2 MG/DL (0-1.2)
[2016-11-02 07:01] LABS: ALKALINE PHOSPHATASE 105 U/L (45-117)
[2016-11-02 08:03] LABS: LYMPHOCYTES 51 %; LYMPHOCYTES ABSOLUTE (CALC) 1.63 10/3/uL (0.67-4.30); NEUTROPHILS ABSOLUTE (CALC) 0.77 10/3/uL (2.02-8.40); TOTAL NUCLEATED CELLS 100
[2016-11-02 08:04] LABS: EOSINOPHILS 2 %; MONOCYTES 18 %; PLATELET ESTIMATE ADQ (ADEQUATE); RBC MORPHOLOGY NORM (NORMAL); SEGMENTED NEUTROPHIL (0) 29 %
[2016-11-03 06:17] LABS: CALCIUM, SERUM 8.3 MG/DL (8.5-10.4); CHLORIDE, SERUM 102 MMOL/L (96-112); CO2 (CARBON DIOXIDE) 28 MMOL/L (24-34); CREATININE 0.93 MG/DL (0.55-1.02); GFR AFRICAN AMERICAN 76 ML/MIN (>=60); GFR NON AFRICAN AMERICAN 65 ML/MIN (>=60); GLUCOSE, SERUM 186 MG/DL (60-99); SODIUM, SERUM 139 MMOL/L (135-148)
[2016-11-03 06:18] LABS: BUN (BLOOD UREA NITROGEN) 20 MG/DL (6-23)
[2016-11-03 06:23] LABS: INTERNATIONAL NORMAL RATI 1.6 UNITS (-); PROTIME (NOT ORD) 19.2 SEC (12.0-14.5)
[2016-11-03] MEDS ORDERED: RYTHMOL225 MG PO (16:56)
== END 2016-11-03 20:12 | disposition home or self-care (01) | DRG 243 ==
LOC: ER 16:44 → 2SO 19:55
PROVIDERS: Anesthesiology; Emergency Medicine; Hospitalist; Internal Medicine Clinical Cardiac Electrophysiology
PROC: 0JH606Z Insertion of Pacemaker, Dual Chamber into Chest Subcutaneous Tissue and Fascia, Open Approach (ICD-10-PCS; principal; 2016-11-02)
PROC: 02H63JZ Insertion of Pacemaker Lead into Right Atrium, Percutaneous Approach (ICD-10-PCS; 2016-11-02)
PROC: 02HK3JZ Insertion of Pacemaker Lead into Right Ventricle, Percutaneous Approach (ICD-10-PCS; 2016-11-02)
DX: I49.5 Sick sinus syndrome (principal); I50.22 Chronic systolic (congestive) heart failure; E11.42 Type 2 diabetes mellitus with diabetic polyneuropathy; I48.92 Unspecified atrial flutter; I13.0 Hypertensive heart and chronic kidney disease with heart failure and stage 1 through stage 4 chronic kidney disease, or unspecified chronic kidney disease; Z99.81 Dependence on supplemental oxygen; N39.0 Urinary tract infection, site not specified; I48.2 Chronic atrial fibrillation; G62.9 Polyneuropathy, unspecified; R55 Syncope and collapse; R00.1 Bradycardia, unspecified; G25.2 Other specified forms of tremor; G47.33 Obstructive sleep apnea (adult) (pediatric); R25.1 Tremor, unspecified; E11.9 Type 2 diabetes mellitus without complications; F41.9 Anxiety disorder, unspecified; F32.9 Major depressive disorder, single episode, unspecified; Z96.659 Presence of unspecified artificial knee joint; E66.01 Morbid (severe) obesity due to excess calories; N18.3 Chronic kidney disease, stage 3 (moderate); M19.90 Unspecified osteoarthritis, unspecified site; T42.6X5A Adverse effect of other antiepileptic and sedative-hypnotic drugs, initial encounter; T42.4X5A Adverse effect of benzodiazepines, initial encounter; M54.10 Radiculopathy, site unspecified; Z79.01 Long term (current) use of anticoagulants; Z95.2 Presence of prosthetic heart valve; Z98.890 Other specified postprocedural states; Z82.49 Family history of ischemic heart disease and other diseases of the circulatory system; Z88.2 Allergy status to sulfonamides; Z88.5 Allergy status to narcotic agent; Z68.38 Body mass index [BMI] 38.0-38.9, adult; I07.1 Rheumatic tricuspid insufficiency; J45.909 Unspecified asthma, uncomplicated
CPT/HCPCS: 33208; 36600; 70450; 70544; 70547; 70551; 71010; 71020; 72141; 80048; 80053; 80069; 81001; 82607; 82805; 82962; 83036; 83605; 83735; 83880; 84100; 84132; 84145; 84439; 84443; 84484; 85025; 85610; 85730; 86592; 87040; 87086; 87804; 93005; 93306; 94640; 94660; 94762; 97116-GP; 97161-GP; 99285; A9270-GY; C1785; C1892; C1898; G8978-CJ-GP; G8979-CJ-GP; G8980-CJ-GP; J0690; J1170; J2405